=== PATIENT | male | born 1990 | race Two or more races ===

== ENCOUNTER 2020-10-13 15:30 | Emergency (ER) | payer OTHER ==
[~2020-10-13] VITALS: Ht 165.1 cm; Wt 62.1 kg
[2020-10-13] MEDS ORDERED: ZITHROMAX200 MG PO (20:25)
[2020-10-13] MEDS ORDERED: BACTRIM DS TAB1 EACH PO (20:25)
== END 2020-10-13 20:30 | disposition home or self-care (01) ==
LOC: ER 15:30
DX: R53.81 Other malaise (principal); N39.0 Urinary tract infection, site not specified; B34.9 Viral infection, unspecified; B96.0 Mycoplasma pneumoniae [M. pneumoniae] as the cause of diseases classified elsewhere; Z11.52 Encounter for screening for COVID-19

== ENCOUNTER → 2020-12-02 | Emergency (ER) | payer OTHER ==
[~2020-12-02] VITALS: Ht 165.1 cm; Wt 63.5 kg
[~2020-12-02] MED LIST: BACTRIM DS TAB1 EACH PO; INTEGRA PLUS C1 EACH PO; PROTONIX40 MG PO; ZITHROMAX200 MG PO
== END | disposition home or self-care (01) ==
LOC: ER 16:04
DX: M77.52 Other enthesopathy of left foot and ankle (principal); R06.02 Shortness of breath; B34.9 Viral infection, unspecified; Z20.822 Contact with and (suspected) exposure to COVID-19

== ENCOUNTER 2020-12-22 15:23 | Emergency (ER) | payer OTHER ==
[~2020-12-22] VITALS: Ht 165.1 cm; Wt 70.3 kg
[~2020-12-22 15:23] MED LIST changes: -INTEGRA PLUS C1 EACH PO; -PROTONIX40 MG PO
[2020-12-23] MEDS ORDERED: INTEGRA PLUS C1 EACH PO (08:14)
[2020-12-23] MEDS ORDERED: PROTONIX40 MG PO (08:14)
== END 2020-12-23 08:41 | disposition home or self-care (01) ==
LOC: ER 15:23 → EDSEX 15:23 → ER 16:32
DX: B34.9 Viral infection, unspecified (principal); E86.0 Dehydration; R50.9 Fever, unspecified; D61.818 Other pancytopenia; D64.9 Anemia, unspecified; Z03.818 Encounter for observation for suspected exposure to other biological agents ruled out

== ENCOUNTER 2020-12-29 11:17 | Inpatient (IN) | payer OTHER ==
[~2020-12-29] VITALS: Ht 165.1 cm; Wt 59.0 kg
[~2020-12-29 11:17] MED LIST changes: +INTEGRA PLUS C1 EACH PO; +PROTONIX40 MG PO
--- NOTE | 2020-12-29 11:48 | NUR ---
PTE REFIERE MALESTAR FIEBRE Y DOLOR EN AL CUERPO SE HOANG S/V Y SE UBICA EN AREA DE ESPERA
--- NOTE | 2020-12-29 14:36 | NUR ---
SE REALIZA CANALIZACION Y JAIRON DE MUESTRAS A PACIENTE BAJO MEDIDAS ASEPTICAS Y DE SEGURIDAD. SE REALIZA EKG Y SE ORIENTA A PACIENTE ACERCA DEL TRATAMIENTO OFRECIDO EN KATE DE EMERGENCIAS. SE MANTIENE PACIENTE EN OBSERVACION PENDIENTE A RESULTADOS DE LABORATORIOS Y CT SCAN.
--- NOTE | 2020-12-29 23:42 | NUR ---
SE RECIBE PTE EN EL AREA DE OBSERVACION EN EL CUBICULO #9 EN [place] CON BARANDAS ELEVADA Y TIMBRE ACCESIBLE PTE ALERTA Y ORIENTADO POR 3 SE OBSERVA VENOPUNCION PATENTE Y OMKAR DE EDEMA PTE SE MANTIENE EN OBSERVACION Y BAJO TRATAMIENTO
--- NOTE | 2020-12-30 07:08 | NUR ---
SE RECIBE PTE DE TURNO ANTERIOR ALERTA Y ORIENTADO X3. AL MOMENTO NO REFIERE DOLOR. SE OBSERVA VENOPUNCION PATENTE OMKAR DE EDEMA Y ERITEMA CON 0.9NSS BAJANDO A 125ML/HR. DIETA REGULAR. PENDIENTE CONSULTA CON DR.RIVERA MCNEAL, PREVIAMENTE NOTIFICADA.
== END 2021-01-07 15:07 | disposition home or self-care (01) | DRG 977 ==
LOC: ER 11:17 → MEDJ 12-30 09:57
PROVIDERS: ADMIT Internal Medicine; ATTEND Internal Medicine
PROC: 8E0ZXY6 Isolation (ICD-10-PCS; principal; 2020-12-30)
PROC: 30233N1 Transfusion of Nonautologous Red Blood Cells into Peripheral Vein, Percutaneous Approach (ICD-10-PCS; 2020-12-30)
DX: B20 Human immunodeficiency virus [HIV] disease (principal); E86.0 Dehydration; R16.2 Hepatomegaly with splenomegaly, not elsewhere classified; R94.5 Abnormal results of liver function studies; D63.8 Anemia in other chronic diseases classified elsewhere; D69.59 Other secondary thrombocytopenia; B27.90 Infectious mononucleosis, unspecified without complication

== ENCOUNTER 2021-01-10 15:47 | Emergency (ER) | payer OTHER ==
[~2021-01-10] VITALS: Ht 165.1 cm; Wt 59.0 kg
== END 2021-01-10 23:03 ==
LOC: ER 15:47
DX: B20 Human immunodeficiency virus [HIV] disease (principal); Z21 Asymptomatic human immunodeficiency virus [HIV] infection status

== ENCOUNTER 2021-01-18 16:12 | Inpatient (IN) | payer OTHER ==
[~2021-01-18] VITALS: Ht 165.1 cm; Wt 54.4 kg
[2021-02-03] MEDS ORDERED: B Complex CAPSULE PO (18:18)
[2021-02-03] MEDS ORDERED: Neurin-Sl Tablet Sl SL (18:18)
[2021-02-03] MEDS ORDERED: THIAMINE HCL100 MG PO (18:18)
[2021-02-03] MEDS ORDERED: INTEGRA PLUS C1 EACH PO (18:18)
[2021-02-03] MEDS ORDERED: PRE PROTEIN1 EACH PO (18:18)
[2021-02-03] MEDS ORDERED: Septra Ds Tablet PO (18:18)
== END 2021-02-03 20:57 | disposition home or self-care (01) | DRG 445 ==
LOC: ER 16:12 → SEC-K 01-19 15:08 → MEDI 01-19 15:08
PROVIDERS: ADMIT Internal Medicine; ATTEND Internal Medicine
PROC: 30233N1 Transfusion of Nonautologous Red Blood Cells into Peripheral Vein, Percutaneous Approach (ICD-10-PCS; 2021-01-19)
PROC: 4A12X4Z Monitoring of Cardiac Electrical Activity, External Approach (ICD-10-PCS; 2021-01-20)
PROC: 30233R1 Transfusion of Nonautologous Platelets into Peripheral Vein, Percutaneous Approach (ICD-10-PCS; principal; 2021-01-24)
DX: K83.1 Obstruction of bile duct (principal); B20 Human immunodeficiency virus [HIV] disease; E87.1 Hypo-osmolality and hyponatremia; E86.0 Dehydration; R16.2 Hepatomegaly with splenomegaly, not elsewhere classified; K81.9 Cholecystitis, unspecified; R41.0 Disorientation, unspecified; R53.81 Other malaise; R00.0 Tachycardia, unspecified; E87.6 Hypokalemia; D69.6 Thrombocytopenia, unspecified

== ENCOUNTER 2021-02-27 09:51 | Inpatient (IN) | payer OTHER ==
[~2021-02-27] VITALS: Ht 165.1 cm; Wt 54.0 kg
[~2021-02-27 09:51] MED LIST changes: +B Complex CAPSULE PO; +Neurin-Sl Tablet Sl SL; +PRE PROTEIN1 EACH PO; +Septra Ds Tablet PO; +THIAMINE HCL100 MG PO
[2021-02-27] MEDS ORDERED: DOVATO 50-3001 EACH PO (10:13)
[2021-02-27] MEDS ORDERED: B COMPLEX1 EACH PO (10:14)
--- NOTE | 2021-02-27 10:29 | NUR ---
SE RECIBE PACIENTE ALERTA Y ORIENTADO X3. PACIENTE DE HIV POSITIVO DEJO DE CALEB TALIA MEDICAMENTOS DESDE HACE 4 LOOENY, SE PRESENTA TEMBLOROSO, TEMPERATURA EN 100.5. PACIENTE REFIERE QUE SIENTE LAS PIERNAS ADORMECIDAS. ANDRE VOLVIO A CALEB FARR MEDICACION, TRATAMIENTO DE HIV. SE LE REALIZA EKG EVALUADO POR , SE MONIOTOREAN S/V Y SE UBICA EN CAMA 14.
--- NOTE | 2021-02-27 11:35 | NUR ---
PACIENTE EVALUADO POR LA .RAISATA QUIEN ORDENA TX MEDICO. SE ORIENTA A PTE SOBRE EL MISMO CHUCHO REFIERE ENTENDER. SE REALIZAN MUESTRAS DE LABORATORIO BAJO MEDIDAS ASEPTICAS Y SE ADMINISTRAN MEDICAMENTOS ZAHEER ORDEN MEDICA. SE ESPERA POR PLACA PECHO.
--- NOTE | 2021-02-27 15:00 | NUR ---
SE RECIBE PTE MASCULINO ALERTA Y ORIENTADO EN LAS JANY ESFERAS DEL TURNO ANTERIOR. SE OSBERVA CON BUEN PATRON RESPIRATROIO Y NO REFIERE DOLOR. VENOPUNCION PATENTE, OMKAR DE EDEMA Y ERITEMA RECIBIEDNO TERAPIA D EIVFS 0.9NSS BAJANDO 450ML/HR. PENDIENTE DISPONIBILIDAD DE JANY UNIDADES DE PRBCS Y CONSULTA CON DR.RIVERA MCNEAL YA NOTIFICADA.
--- NOTE | 2021-02-27 20:00 | NUR ---
1811 SE HOANG S/V A PTE: HR:124LAT/MIN, BP:102/70MMHG, TEMP:99.4 F Y RR:20/MIN. 1829 SE BUSCA A [facility]ATORIO [facility], UNIDAD DE PRBC'S COMPLETA PARA TRANSFUSION. 1831 SE VERIFICA UNIDAD DE PRBCS CON RN FISH, #[id number] O POSITIVO, CON FECHA DE EXPIRACION 03/10/2021. 1834 SE COMIENZA TRANSFUSION DE PRIMERA UNIDAD DE PRBC COMPLETA. SE MANTIENE BAJO OBSERVACION POR CAMBIOS. 1849 SE HOANG S/V PTE PRESENTA TEMP:102.8 F. PTE REFIERE QUE LLEVA VARIOS LOONEY CON FIEBRE SIN [place], AL MOMENTO DE TRANSFUNDIR PTE NO PRESENTA FIEBRE. 1851 SE CONTACTA VIA TELEFONICA A DR.RIVERA MCNEAL; SE NOTIFICA TEMPERATURA DE PTE Y ESTATUS DE UNIDAD DE CINDY. MD REFIERE ADMINISTRAR TYLENOL Y CONTINUAR CON TRANSFUSION DE PRBC. SE REALIZA READBACK X2. 1857 SE ADMINISTRA MEDICAMENTO ORDENADO, SE COLOCAN COMPRESAS DURANT. SE MANTIENE EN OBSERVACION. 1904 SE HOANG Y REPORTAN S/V. SE CONTINUA EN JAMEEL MONITOREO. 1919 SE HOANG S/V PTE PRESENTA TEMP:105.6 Y HR:158LAT/MIN. [address]RIVERA MCNEAL, CHUCHO REFIERE DETENER TRANSFUSION Y DISMINUIR FIEBRE Y SE CONTINUE CON TRANSFUSIONES RESTANTES. SE REALIZA READBACK X2. 1941 SE CONTACTA A [facility], SE NOTIFICA A LIC.PENA REACCION. 2014 SE COLECTAN TUBOS PILOTOS DE REACCION, BAJO MEDIDAS ASEPTICAS. SE ENTREGA ENVASE PARA COLECCION DE MUESTRA DE U/A Y SE ORIENTA PTE REFIERE COMPRENDER.
== END 2021-03-03 15:09 | disposition expired | DRG 975 ==
LOC: ER 09:51 → SURH 18:28
PROVIDERS: ADMIT Internal Medicine; ATTEND Internal Medicine
PROC: 30233N1 Transfusion of Nonautologous Red Blood Cells into Peripheral Vein, Percutaneous Approach (ICD-10-PCS; 2021-02-27)
PROC: 3E0F7GC Introduction of Other Therapeutic Substance into Respiratory Tract, Via Natural or Artificial Opening (ICD-10-PCS; 2021-03-02)
PROC: 0BH17EZ Insertion of Endotracheal Airway into Trachea, Via Natural or Artificial Opening (ICD-10-PCS; principal; 2021-03-03)
PROC: 4A033R1 Measurement of Arterial Saturation, Peripheral, Percutaneous Approach (ICD-10-PCS; 2021-03-03)
DX: B20 Human immunodeficiency virus [HIV] disease (principal); A41.9 Sepsis, unspecified organism; K81.0 Acute cholecystitis; N39.0 Urinary tract infection, site not specified; M62.82 Rhabdomyolysis; E87.1 Hypo-osmolality and hyponatremia; R18.8 Other ascites; D63.8 Anemia in other chronic diseases classified elsewhere; R16.2 Hepatomegaly with splenomegaly, not elsewhere classified; R50.9 Fever, unspecified; B27.80 Other infectious mononucleosis without complication; B34.9 Viral infection, unspecified; E86.0 Dehydration; E87.6 Hypokalemia; A49.3 Mycoplasma infection, unspecified site; R79.89 Other specified abnormal findings of blood chemistry; I46.9 Cardiac arrest, cause unspecified; R50.84 Febrile nonhemolytic transfusion reaction; Z03.818 Encounter for observation for suspected exposure to other biological agents ruled out